=== PATIENT | female | born 1975 | race American Indian/Alaskan Native ===

== ENCOUNTER 2016-10-21 17:42 | Emergency (ER) | payer SELFPAY ==
[2016-10-21 17:59] VITALS: BP 143/103
--- NOTE | 2016-10-27 14:30 | ED Elopement Review ---
ED Pt Elopement review - Call Back decision Pt Call Back Decision: No action required
== END 2016-10-21 20:35 | disposition left against medical advice (07) ==
LOC: ED 17:42
DX: H53.8 Other visual disturbances (principal); R51 Headache; Z53.21 Procedure and treatment not carried out due to patient leaving prior to being seen by health care provider